=== PATIENT | female | born 1980 | race Caucasian/White ===

== ENCOUNTER 2018-10-07 15:57 | Outpatient (CLI) | payer BC, MEDICAID ==
[~2018-10-07] VITALS: Ht 142.2 cm; Wt 69.8 kg
[~2018-10-07 15:57] MED LIST: PNV11TAB PO
[2018-10-07 17:36] VITALS: BP 99/56; PULSE 94; RESP 18; Ht 142.2 cm; Wt 69.8 kg
--- NOTE | 2018-10-08 05:09 | TRIAGE ---
OB Triage Datetime Report Generated by CPN: 10/08/2018 05:08 Datetime: 10/07/2018 19:02 EGA: 26.4 Datetime: 10/07/2018 18:15 Stage of : OB Triage Datetime: 10/07/2018 17:50 Labor Evaluation Frequency: 0 Monitor Mode: External Pattern: Normal: <= 5 Contractions in 10 Minutes Resting Tone [place]: Relaxed Heart Rate FHR Baseline Rate: 125 Monitor Mode: External US Variability: Moderate 6-25 bpm Accelerations: 10X10 Decelerations: None Category: Category I Pain Assessment Pain Scale: 6 Pain Presence: Constant Pain Type: Ache Pain Location: Right Leg; Left Leg Pain Goal: 3 Pain Relief Measures: Comfort Measures Pain Assessment Comments: WORSE THAN STANDING Datetime: 10/07/2018 16:43 Stage of : OB Triage Assessment Type: Triage Maternal Assessment Level of Consciousness: Keenly Alert, Responsive DTR's/Clonus: DTRs 2+; No Clonus Headache: Denies Blurred Vision: No Respiratory Effort: Unlabored; Regular Rhythm; Equal Expansion Breath Sounds, Left: Clear and Equal Breath Sounds, Right: Clear and Equal Nausea/Vomiting: Denies RUQ Epigastric Pain: Denies Facial Edema: None Temperature Route: Axillary Fall Risk Assessment History of Falling: (0) No Secondary Diagnosis: (0) No Ambulatory Aid: (0) Bedrest/Nurse Assist IV Therapy: (0) No Gait: (0) Normal/Bedrest/Immobile Mental Status: (0) Oriented to Own Ability Fall Score: 0 Fall Risk Score Definition: No Risk: No action required Labor Evaluation Frequency: 0 Monitor Mode: External Pattern: Normal: <= 5 Contractions in 10 Minutes Resting Tone [place]: Relaxed Heart Rate FHR Baseline Rate: 145 Monitor Mode: External US Variability: Moderate 6-25 bpm Decelerations: None Category: Category I Pain Assessment Pain Scale: 8 Pain Presence: Constant Pain Type: Cramping Pain Location: Right Leg; Left Leg Pain Goal: HURTS MOST AT NIGHT Pain Relief Measures: Comfort Measures Datetime: 10/07/2018 16:42 Time of Arrival: 10/07/2018 15:50 EGA: 26.4 Arrived By: Ambulatory Arrived From: Dr. Office Chief Complaint: REFERRED FROM DR OFFICE FOR LEG PAIN, DENIES BLEEDING, UC'S, OR LEAKING Movement: Decreased Contractions: Denies/Absent Rupture of Membranes: Denies Vaginal Bleeding: None Vaginal Discharge: Denies Recent Sexual Intercouse: Denies Abdominal Trauma: Not Applicable Patient Complaints: None Initial Plan: MONITOR, DENITA DOPPLER STUDIES BILATERAL
--- NOTE | 2018-10-08 20:00 | PN ---
Triage Information Date/Time Late entry note for exam for October 07, 2018 Reason for visit: Patient was sent from the office due to leg pain, Weeks of Gestation 26 weeks and 4 days /Para 3 para 2 Additional information 38-year-old G3, P2 with IUP at 26 weeks and 4 days was sent from the clinic due to leg pain for evaluation. She denies any leaking of fluid, vaginal bleeding or decreased movement or any other complaint. Objective Vital Signs Date Temp Pulse Resp B/P (MAP) Pulse Ox O2 O2 Flow FiO2 Time Delivery Rate 10/07/18 97.9 94 18 99/56 (70) 17:36 Heart Rate: 130's Heart Rate Comments Category 1 and appropriate for gestational age No contraction on the monitor Exam Appearance: Alert and oriented x4 does not appear to be in any acute distress Abdomen: Soft, gravid, fundal height consider gestational age NST: Category 1 no contraction on the monitor Extremities: No calf tenderness, negative Homans sign Doppler of both lower extremities negative Results/Medications Imaging Results PROCEDURE: US OB. CLINICAL INDICATION: Second term with variable decelerations. TECHNIQUE: Multiple sonographic images of the pelvis and gravid uterus were obtained. The images were reviewed on a PACS workstation. COMPARISON: No prior studies are available for comparison. FINDINGS: Noted is a single intrauterine gestation in cephalic lie with positive heart beat measuring 144 beats per minute. The amniotic fluid index was not calculated, however, there was a pocket with a 7.1 cm diameter. The placenta is posterior grade 1 without evidence of previa. IMPRESSION: Single intrauterine gestation cephalic lie with positive heart beat. Qualitative normal amniotic fluid volume. Posterior grade 1 placenta. RPTAT: PP PROCEDURE: US Lower extremity Venous. CLINICAL INDICATION: Bilateral lower extremity edema TECHNIQUE: Multiple sonographic images of the bilateral lower extremity deep venous system was obtained utilizing grayscale, color-flow, compressive sonography and doppler imaging with augmentation. The images were reviewed on a PACS workstation. COMPARISON: None. FINDINGS: There is normal compressibility and flow within the right common femoral, femoral , posterior tibial and popliteal veins. There is normal compressibility and flow within the left common femoral, femoral , posterior tibial and popliteal veins. RPTAT: AA IMPRESSION: No sonographic evidence for deep venous thrombo Disposition: Discharge Assessment/Plan IUP at 26 weeks and 4 days No evidence of DVT Leg pain, musculoskeletal Patient stable No evidence of PPROM or labor DC home Strict labor precautions and kick count follow-up with OB office within 2 to 3 days after discharge from the hospital discussed with patient Patient verbalized understanding all questions answered to patient with satisfaction. MARIO LUIS MD Oct 08, 2018 20:00
== END 2018-10-07 22:10 | disposition home or self-care (01) ==
LOC: OBT 15:57 → L-D 15:59 → OBT 22:10
PROVIDERS: ATTEND Obstetrics & Gynecology
DX: O26.892 Other specified pregnancy related conditions, second trimester (principal); Z3A.26 26 weeks gestation of pregnancy; M79.606 Pain in leg, unspecified
CPT/HCPCS: 76815; 93970; Z7500; G0463